=== PATIENT | female | born 1935 | race Caucasian/White ===

== ENCOUNTER 2020-10-30 01:13 | Inpatient (IN) | payer OTHER, SELFPAY ==
[~2020-10-30] VITALS: Ht 152.4 cm; Wt 53.1 kg
[2020-10-30] MEDS ORDERED: NITROGLYCERIN 1 INCH (GM) OINT. TD ONE (01:30)
[2020-10-30] MEDS ORDERED: ALBUTEROL SULFATE 0.083% 2.5 MG/3 ML VIAL.NEB INH ONE (01:30)
[2020-10-30] MEDS ORDERED: ONDANSETRON HCL 4 MG/2 ML VIAL IVP ONE ×2 (01:30→11:45)
[2020-10-30] MEDS ORDERED: MORPHINE 2 MG/ML INJ. SYRINGE IVP ONE ×2 (01:30→06:00)
[2020-10-30] MEDS ORDERED: FUROSEMIDE 40 MG/4 ML VIAL IVP ONE (01:30)
[2020-10-30 01:35] VITALS: BP_SYST 170
[2020-10-30 01:53] LABS: ANION GAP 11 (5-15); CALCIUM 8.6 mg/dL (8.4-11.0); CHLORIDE 99 mmol/L (98-107); CREATININE 4.09 mg/dL (0.55-1.30); GLUCOSE 198 mg/dL (70-99); POTASSIUM 4.7 mmol/L (3.5-5.1); SODIUM SERUM 136 mmol/L (136-145); UREA NITROGEN, BLOOD 46 mg/dL (8-21)
[2020-10-30 01:55] LABS: BASOPHILS # (AUTO) 0.2 K/uL (0.0-0.2); BASOPHILS % (AUTO) 0.8 % (0.0-2.0); EOSINOPHILS # (AUTO) 0.5 K/uL (0.0-0.4); EOSINOPHILS % (AUTO) 2.5 % (0.0-4.0); HEMATOCRIT 32.6 % (36-48); HEMOGLOBIN 10.6 g/dL (12.0-16.0); LYMPHOCYTES # (AUTO) 3.3 K/uL (1.0-5.5); LYMPHOCYTES % (AUTO) 16.4 % (20.5-51.5); MEAN CORPUSCULAR HEMOGLOBIN 31 pg (27-31); MEAN CORPUSCULAR HGB CONC 33 % (32-36); MEAN CORPUSCULAR VOLUME 95 fL (79.0-98.0); MONOCYTES # (AUTO) 0.8 K/uL (0.0-1.0); MONOCYTES % (AUTO) 3.7 % (1.7-9.3); NEUTROPHILS # (AUTO) 15.7 K/uL (1.8-7.7); NEUTROPHILS % (AUTO) 76.6 % (40.0-70.0); PLATELET COUNT (AUTO) 452 K/uL (130-430); RED BLOOD CELL COUNT(AUTO) 3.44 MIL/uL (4.2-6.2); RED CELL DISTRIBUTION WIDTH 18.5 % (9.0-15.0); WHITE BLOOD COUNT (AUTO) 20.4 K/uL (4.8-10.8)
[2020-10-30 02:02] LABS: ALANINE AMINOTRANSFERASE 18 U/L (12-78); ALBUMIN 2.4 g/dL (3.4-4.8); ASPARTATE AMINOTRANSFERASE 35 U/L (10-37); TOTAL BILIRUBIN 0.6 mg/dL (0.0-1.0)
[2020-10-30] MEDS ORDERED: CLINDAMYCIN 900 mg/50mL D5W 50 ML IV ONE (02:30)
[2020-10-30] MEDS ORDERED: LEVOFLOXACIN IN DEXTROSE 5 % 100 ML IV ONE (02:30)
[2020-10-30] MEDS ORDERED: MORPHINE 2 MG/ML INJ. SYRINGE ONE (04:44)
[2020-10-30 05:46] VITALS: BP_SYST 122
[2020-10-30 05:54] LABS: BILIRUBIN,URINE NEGATIVE (NEGATIVE); CLARITY/URINE SL CLOUDY (CLEAR); COLOR,URINE YELLOW (YELLOW); GLUCOSE,URINE NEGATIVE (NEGATIVE); KETONES,URINE NEGATIVE (NEGATIVE); LEUKOCYTE ESTERASE ,URINE TRACE (NEGATIVE); NITRITE, URINE NEGATIVE (NEGATIVE); PH,URINE 7.5 (5.0-8.0); PROTEIN URINE 1+ (NEGATIVE); UROBILINOGEN,URINE 0.2 (0.2-1.0)
[2020-10-30 06:10] LABS: BLOOD, URINE TRACE (NEGATIVE)
[2020-10-30 06:25] LABS: BACTERIA,URINE FEW /HPF (None Seen)
[2020-10-30] MEDS ORDERED: ALBUTEROL SULFATE 0.083% 2.5 MG/3 ML VIAL.NEB INH PRN (08:15)
[2020-10-30] MEDS ORDERED: NALOXONE HCL 0.4 MG/ML AMP (NARCAN) IVP PRN (08:15)
[2020-10-30] MEDS ORDERED: HYDROcodone/ACETAMIN 5-325 MG TAB (NORCO/ VICODIN) PO PRN ×2 (08:15→09:00)
[2020-10-30] MEDS ORDERED: ACETAMINOPHEN 325 MG TABLET PO PRN ×2 (08:15→09:00)
[2020-10-30] MEDS: cefTRIAXone 1 GM IVPB PREMIX 50 ML IV SCH (09:36)
[2020-10-30 09:50] LABS: BASOPHILS # (AUTO) 0.1 K/uL (0.0-0.2); BASOPHILS % (AUTO) 0.7 % (0.0-2.0); EOSINOPHILS # (AUTO) 0.1 K/uL (0.0-0.4); EOSINOPHILS % (AUTO) 0.4 % (0.0-4.0); HEMATOCRIT 27.5 % (36-48); HEMOGLOBIN 9.2 g/dL (12.0-16.0); LYMPHOCYTES # (AUTO) 1.2 K/uL (1.0-5.5); LYMPHOCYTES % (AUTO) 7.5 % (20.5-51.5); MEAN CORPUSCULAR HEMOGLOBIN 31 pg (27-31); MEAN CORPUSCULAR HGB CONC 33 % (32-36); MEAN CORPUSCULAR VOLUME 93 fL (79.0-98.0); MONOCYTES # (AUTO) 0.4 K/uL (0.0-1.0); MONOCYTES % (AUTO) 2.7 % (1.7-9.3); NEUTROPHILS # (AUTO) 14.4 K/uL (1.8-7.7); NEUTROPHILS % (AUTO) 88.7 % (40.0-70.0); PLATELET COUNT (AUTO) 319 K/uL (130-430); RED BLOOD CELL COUNT(AUTO) 2.96 MIL/uL (4.2-6.2); RED CELL DISTRIBUTION WIDTH 18.3 % (9.0-15.0); WHITE BLOOD COUNT (AUTO) 16.2 K/uL (4.8-10.8)
[2020-10-30] MEDS ORDERED: LIP10 PO (09:56)
[2020-10-30] MEDS ORDERED: FER300L PO (09:58)
[2020-10-30] MEDS ORDERED: LEVO25TA2 PO (09:58)
[2020-10-30] MEDS ORDERED: FOLI0.8T42 PO (09:58)
[2020-10-30] MEDS ORDERED: METO25TA6 PO (09:58)
[2020-10-30 10:10] LABS: ALANINE AMINOTRANSFERASE 15 U/L (12-78); ALBUMIN 2.2 g/dL (3.4-4.8); ANION GAP 10 (5-15); ASPARTATE AMINOTRANSFERASE 23 U/L (10-37); CALCIUM 8.1 mg/dL (8.4-11.0); CHLORIDE 99 mmol/L (98-107); CREATININE 4.27 mg/dL (0.55-1.30); GLUCOSE 137 mg/dL (70-99); POTASSIUM 4.6 mmol/L (3.5-5.1); SODIUM SERUM 134 mmol/L (136-145); TOTAL BILIRUBIN 0.4 mg/dL (0.0-1.0); UREA NITROGEN, BLOOD 48 mg/dL (8-21)
[2020-10-30] MEDS: AZITHROMYCIN 500 MG in NS 250 ML IV SCH (10:34)
[2020-10-30] MEDS ORDERED: AMLO2.5T2 PO (11:27)
[2020-10-30] MEDS ORDERED: LIP20 PO (11:27)
[2020-10-30] MEDS ORDERED: ONDANSETRON HCL 4 MG/2 ML VIAL ONE (11:44)
[2020-10-30] MEDS: NORMAL SALINE 5 ML DISP.SYRIN IVF SCH ×2 (15:07→22:22)
[2020-10-30 16:37] VITALS: BP_SYST 106
[2020-10-30 16:41] VITALS: BP_SYST 90
[2020-10-30] MEDS ORDERED: COMMUNICATION ORDER XX ONE (16:45)
[2020-10-30] MEDS ORDERED: HEPARIN SODIUM,PORCINE 5,000 UNITS/ML VIAL MC ONE ×2 (17:00)
[2020-10-30 22:40] VITALS: BP_SYST 118
[2020-10-31 00:58] VITALS: BP_SYST 114
[2020-10-31] MEDS: NORMAL SALINE 5 ML DISP.SYRIN IVF SCH ×3 (05:46→21:04)
[2020-10-31 07:24] LABS: BASOPHILS % (AUTO) 0.2 % (0.0-2.0); EOSINOPHILS % (AUTO) 6.4 % (0.0-4.0); HEMATOCRIT 27.8 % (36-48); HEMOGLOBIN 9.2 g/dL (12.0-16.0); LYMPHOCYTES # (AUTO) 0.4 K/uL (1.0-5.5); LYMPHOCYTES % (AUTO) 2.9 % (20.5-51.5); MEAN CORPUSCULAR HEMOGLOBIN 31 pg (27-31); MEAN CORPUSCULAR HGB CONC 33 % (32-36); MEAN CORPUSCULAR VOLUME 93 fL (79.0-98.0); MONOCYTES # (AUTO) 0.3 K/uL (0.0-1.0); NEUTROPHILS # (AUTO) 13.6 K/uL (1.8-7.7); NEUTROPHILS % (AUTO) 88.5 % (40.0-70.0); PLATELET COUNT (AUTO) 272 K/uL (130-430); RED BLOOD CELL COUNT(AUTO) 2.98 MIL/uL (4.2-6.2); RED CELL DISTRIBUTION WIDTH 18.3 % (9.0-15.0); WHITE BLOOD COUNT (AUTO) 15.4 K/uL (4.8-10.8)
[2020-10-31 07:31] LABS: ALANINE AMINOTRANSFERASE 14 U/L (12-78); ALBUMIN 1.9 g/dL (3.4-4.8); ANION GAP 8 (5-15); ASPARTATE AMINOTRANSFERASE 21 U/L (10-37); CHLORIDE 101 mmol/L (98-107); CREATININE 2.85 mg/dL (0.55-1.30); GLUCOSE 87 mg/dL (70-99); POTASSIUM 3.7 mmol/L (3.5-5.1); SODIUM SERUM 137 mmol/L (136-145); TOTAL BILIRUBIN 0.3 mg/dL (0.0-1.0); UREA NITROGEN, BLOOD 23 mg/dL (8-21)
[2020-10-31 07:47] VITALS: BP_SYST 120
[2020-10-31] MEDS: cefTRIAXone 1 GM IVPB PREMIX 50 ML IV SCH (08:43)
[2020-10-31] MEDS: AZITHROMYCIN 500 MG in NS 250 ML IV SCH (10:37)
[2020-10-31 11:15] VITALS: BP_SYST 89
[2020-10-31] MEDS ORDERED: NS 250 ML IV ONE (11:30)
[2020-10-31 12:12] VITALS: BP_SYST 95
[2020-10-31 16:50] VITALS: BP_SYST 114
[2020-10-31 20:00] VITALS: BP_SYST 101
[2020-10-31] MEDS ORDERED: ALBUMIN HUMAN 25% 50 ML IV ONE (23:30)
[2020-11-01] VITALS: BP_SYST 87
[2020-11-01 00:56] VITALS: BP_SYST 100
[2020-11-01] MEDS: NORMAL SALINE 5 ML DISP.SYRIN IVF SCH ×3 (05:10→22:12)
[2020-11-01 08:00] VITALS: BP_SYST 107
[2020-11-01] MEDS: cefTRIAXone 1 GM IVPB PREMIX 50 ML IV SCH (08:32)
[2020-11-01] MEDS: AZITHROMYCIN 500 MG in NS 250 ML IV SCH (10:49)
[2020-11-01] MEDS ORDERED: LEVOTHYROXINE SODIUM 0.025 MG TABLET PO ONE (11:30)
[2020-11-01] MEDS ORDERED: METOPROLOL TARTRATE 25 MG TABLET PO ONE (11:30)
[2020-11-01] MEDS ORDERED: ATORVASTATIN 20 MG TABLET PO ONE (11:30)
[2020-11-01] MEDS ORDERED: amLODIPine BESYLATE 5 MG TABLET PO ONE (11:30)
[2020-11-01] MEDS ORDERED: HEPARIN SODIUM, PORCINE 10,000 UNITS/ 10 ML VIAL IV ONE (16:30)
[2020-11-01 16:35] VITALS: BP_SYST 114
[2020-11-01] MEDS ORDERED: HEPARIN SODIUM,PORCINE 5,000 UNITS/ML VIAL IV ONE (17:30)
[2020-11-01 20:00] VITALS: BP_SYST 119
[2020-11-02 00:13] VITALS: BP_SYST 121
[2020-11-02] MEDS: NORMAL SALINE 5 ML DISP.SYRIN IVF SCH ×2 (06:17→18:27)
[2020-11-02] MEDS ORDERED: LEVOTHYROXINE SODIUM 0.025 MG TABLET PO SCH (07:00)
[2020-11-02 07:02] LABS: BASOPHILS # (AUTO) 0.1 K/uL (0.0-0.2); BASOPHILS % (AUTO) 0.8 % (0.0-2.0); EOSINOPHILS % (AUTO) 9.8 % (0.0-4.0); LYMPHOCYTES # (AUTO) 1.7 K/uL (1.0-5.5); LYMPHOCYTES % (AUTO) 17.1 % (20.5-51.5); MEAN CORPUSCULAR HEMOGLOBIN 31 pg (27-31); MEAN CORPUSCULAR HGB CONC 33 % (32-36); MEAN CORPUSCULAR VOLUME 94 fL (79.0-98.0); MONOCYTES # (AUTO) 0.5 K/uL (0.0-1.0); MONOCYTES % (AUTO) 5.2 % (1.7-9.3); NEUTROPHILS # (AUTO) 6.8 K/uL (1.8-7.7); NEUTROPHILS % (AUTO) 67.1 % (40.0-70.0); PLATELET COUNT (AUTO) 250 K/uL (130-430); RED BLOOD CELL COUNT(AUTO) 2.88 MIL/uL (4.2-6.2); RED CELL DISTRIBUTION WIDTH 18.4 % (9.0-15.0); WHITE BLOOD COUNT (AUTO) 10.1 K/uL (4.8-10.8)
[2020-11-02 07:16] LABS: ALANINE AMINOTRANSFERASE 17 U/L (12-78); ALBUMIN 2.2 g/dL (3.4-4.8); ANION GAP 3 (5-15); ASPARTATE AMINOTRANSFERASE 23 U/L (10-37); CALCIUM 8.2 mg/dL (8.4-11.0); CHLORIDE 104 mmol/L (98-107); GLUCOSE 90 mg/dL (70-99); POTASSIUM 4.9 mmol/L (3.5-5.1); SODIUM SERUM 140 mmol/L (136-145); TOTAL BILIRUBIN 0.2 mg/dL (0.0-1.0); UREA NITROGEN, BLOOD 16 mg/dL (8-21)
[2020-11-02 07:56] VITALS: BP_SYST 145
[2020-11-02] MEDS ORDERED: METOPROLOL TARTRATE 25 MG TABLET PO SCH (09:00)
[2020-11-02] MEDS ORDERED: ATORVASTATIN 10 MG TABLET PO SCH (09:00)
[2020-11-02] MEDS ORDERED: amLODIPine BESYLATE 5 MG TABLET PO SCH (09:00)
[2020-11-02] MEDS: cefTRIAXone 1 GM IVPB PREMIX 50 ML IV SCH (10:24)
[2020-11-02] MEDS: AZITHROMYCIN 500 MG in NS 250 ML IV SCH (10:25)
[2020-11-02 12:28] VITALS: BP_SYST 128
[2020-11-02 16:15] VITALS: BP_SYST 122
[2020-11-02 16:32] VITALS: BP_SYST 122
== END 2020-11-02 18:25 | disposition home or self-care (01) | DRG 871 ==
LOC: SED 01:13 → STU 04:48 → SMU 11-02 10:57
PROVIDERS: ADMIT Internal Medicine Hospice and Palliative Medicine; ATTEND Internal Medicine Hospice and Palliative Medicine
PROC: 5A1D70Z Performance of Urinary Filtration, Intermittent, Less than 6 Hours Per Day (ICD-10-PCS; principal; 2020-10-30)
PROC: 5A09357 Assistance with Respiratory Ventilation, Less than 24 Consecutive Hours, Continuous Positive Airway Pressure (ICD-10-PCS; 2020-10-30)
PROC: 5A1D70Z Performance of Urinary Filtration, Intermittent, Less than 6 Hours Per Day (ICD-10-PCS; 2020-10-31)
DX: A41.9 Sepsis, unspecified organism (principal); J18.9 Pneumonia, unspecified organism; N18.6 End stage renal disease; I21.4 Non-ST elevation (NSTEMI) myocardial infarction; J96.21 Acute and chronic respiratory failure with hypoxia; I42.0 Dilated cardiomyopathy; J44.0 Chronic obstructive pulmonary disease with (acute) lower respiratory infection; I13.2 Hypertensive heart and chronic kidney disease with heart failure and with stage 5 chronic kidney disease, or end stage renal disease; I44.7 Left bundle-branch block, unspecified; J84.10 Pulmonary fibrosis, unspecified; Z20.822 Contact with and (suspected) exposure to COVID-19; I50.9 Heart failure, unspecified; E11.22 Type 2 diabetes mellitus with diabetic chronic kidney disease; Z99.2 Dependence on renal dialysis; Z95.828 Presence of other vascular implants and grafts
CPT/HCPCS: 36415; 36600; 71045; 71275; 76376; 80053; 81000; 82803-TC; 83605; 83880; 84484; 85025; 85379; 87040-TC; 87081; 87086; 93005; 93306; 94640; 94660; 96374; 96375; 99291; G0378; J0456; J0696; J1644; J1940; J1956; J2270; J2405; J3490; J7050; J7613; P9046; Q9967